=== PATIENT | male | born 1965 | race Caucasian/White ===

== ENCOUNTER 2019-03-02 11:51 | Emergency (ER) | payer BC ==
[~2019-03-02] VITALS: Ht 175.3 cm; Wt 104.5 kg
[2019-03-02 11:59] VITALS: BP 137/89; TEMP 98.4
[2019-03-02] MEDS ORDERED: CLEOCIN HCL300 MG PO ×2 (14:20→14:35)
[2019-03-02 14:37] VITALS: PULSE 91
== END 2019-03-02 14:38 | disposition home or self-care (01) ==
LOC: COL.ER 11:51
DX: T17.920A Food in respiratory tract, part unspecified causing asphyxiation, initial encounter (principal)

== ENCOUNTER 2022-03-18 12:23 | Observation (INO) | payer BC ==
[~2022-03-18] VITALS: Ht 175.3 cm; Wt 112.3 kg
[~2022-03-18 12:23] MED LIST: CLEOCIN HCL300 MG PO
[2022-03-18 13:53] LABS: BASO # 0.1 K/mm3 (0.0-0.2); BASO % 1.1 % (0.0-2.0); EOS # 0.2 K/mm3 (0.0-0.7); EOS % 2.8 % (0.0-4.0); GRAN # 5.4 K/mm3 (1.4-6.5); HEMATOCRIT 50.5 % (42.0-52.0); HEMOGLOBIN 16.8 g/dl (13.5-18.0); LYMPH % 23.5 % (20.0-51.0); MEAN CELL VOLUME 92 fl (80.0-100.0); MEAN CORPUSCULAR HEMOGLOBIN 31 pg (27-31); MEAN CORPUSCULAR HGB CONC 33 g/dl (33.0-37.0); MEAN PLATELET VOLUME 11.3 fl (7.4-10.4); MONO # 0.8 K/mm3 (0.1-0.6); MONO % 9.2 % (1.7-9.3); PLATELET COUNT 274 K/mm3 (130-400); RED BLOOD COUNT 5.49 M/mm3 (4.20-5.60); REDCELL DISTRIBUTION WIDTH-CV 13.3 % (11.5-14.5)
[2022-03-18 14:07] LABS: CALCIUM 9.1 mg/dL (8.4-10.2); CREATININE, serum 0.89 mg/dL (0.72-1.25); POTASSIUM 4.2 mmol/L (3.5-4.5)
[2022-03-18 19:42] VITALS: BP 131/93; PULSE 69; TEMP 98.1
[2022-03-18] MEDS ORDERED: AMOXICILLIN 8751 TAB (19:58)
[2022-03-18] MEDS ORDERED: CLARITIN-D 10 M1 T24 (19:59)
[2022-03-18 22:55] VITALS: BP 119/68; PULSE 87; TEMP 97.8
[2022-03-19 05:25] LABS: BASO # 0.1 K/mm3 (0.0-0.2); EOS # 0.3 K/mm3 (0.0-0.7); EOS % 4.1 % (0.0-4.0); GRAN # 4.7 K/mm3 (1.4-6.5); GRAN % 57.3 % (42.2-75.2); HEMATOCRIT 46.1 % (42.0-52.0); HEMOGLOBIN 16.1 g/dl (13.5-18.0); LYMPH # 2.2 K/mm3 (1.2-3.4); LYMPH % 27.2 % (20.0-51.0); MEAN CELL VOLUME 89 fl (80.0-100.0); MEAN CORPUSCULAR HEMOGLOBIN 31 pg (27-31); MEAN CORPUSCULAR HGB CONC 35 g/dl (33.0-37.0); MEAN PLATELET VOLUME 11.8 fl (7.4-10.4); MONO # 0.8 K/mm3 (0.1-0.6); MONO % 10.2 % (1.7-9.3); PLATELET COUNT 273 K/mm3 (130-400); REDCELL DISTRIBUTION WIDTH-CV 13.2 % (11.5-14.5)
[2022-03-19 05:44] LABS: CALCIUM 8.7 mg/dL (8.4-10.2); CHOLESTEROL RISK RATIO 4.8; CREATININE, serum 0.92 mg/dL (0.72-1.25); POTASSIUM 4.6 mmol/L (3.5-4.5)
--- NOTE | 2022-03-19 06:51 | NUR ---
PT admitted to room 351 from ED per WC, alert and oriented x4, ambulating in room without difficulty, reports double vision, but only while looking down, and right side headache, rates pain as 5/10. INT present in left hand, patent/secure. oriented to room, floor and POC. orders reviewed, pt refuses Lovenox.
--- NOTE | 2022-03-19 06:59 | NUR ---
pt on RA, VSS, neuro checks WNL other than double vision. Dr Aguilar here last noc for consult, Dr Monaco notified per phone this am. tylenol given x1 for headache @ 0345, new INT in left wrist, intact and secure, am lab obtained with IV start. tolerated regular diet last noc, no N/V. up ad ludwig in room.
[2022-03-19 08:57] VITALS: BP 120/81; PULSE 66; TEMP 97.8
--- NOTE | 2022-03-19 09:21 | NUR ---
JORGE met with the patient to discuss discharge plan. The patient lives alone in [place]. He reports independence with ADLs and does not have any DME. The patient states that he is in the process of switching to the [facility] for primary care and he has an appointment there the and of this month. He states he believes he is getting set up with Dr. Martin. He receives his medications from [facility] in [place]. The patient does not have a DPOA-HC, but he was interested in obtaining a form. JORGE provided. The patient states that he is and has four children: Karime, Live, Parveen, and Shelli. He states that he has no contact with Shelli. JORGE informed the patient how his four children are his legal next of kin. The patient verbalized understanding. The patient has his sister, Niesha Bajwa (ph#[phone]), as his person to contact. The patient plans on returning home upon discharge. No additional needs at this time. *Discharge plan: home*
--- NOTE | 2022-03-19 10:10 | NUR ---
Initial visit; Patient thanked Hospice Clinical Supervisor for looking in on him and offering God's blessings and keeping him in Hospice Clinical Supervisor's prayers.
[2022-03-19 11:42] VITALS: BP 130/85; PULSE 60; TEMP 97.9
[2022-03-19] MEDS ORDERED: ASPIRIN 81M81 MG/TA2 PO (14:14)
[2022-03-19] MEDS ORDERED: LIPITOR 10MG10 MG PO (14:15)
--- NOTE | 2022-03-19 16:30 | NUR ---
DISCHARGE INFORMATION AND EDUCATION PROVIDED TO PT. IV REMOVED. QUESTIONS ANSWERED. WALKED PT OUT. NOP FURTHER CONCERNS.
== END 2022-03-19 16:30 | disposition home or self-care (01) ==
LOC: COL.ER 12:23 → MEDICAL 15:42
PROVIDERS: Emergency Medicine; ADMIT Family Medicine
DX: H53.2 Diplopia (principal); R51.9 Headache, unspecified; E87.5 Hyperkalemia; I10 Essential (primary) hypertension
CPT/HCPCS: 99232-AI; 99239; G0378; J1200; J2765; Q9967